=== PATIENT | male | born 1985 | race Two or more races ===

== ENCOUNTER 2018-09-19 07:50 | Emergency (ER) | payer OTHER ==
[~2018-09-19] VITALS: Ht 180.3 cm; Wt 59.0 kg
[2018-09-19] MEDS ORDERED: CloNIDine HCL 0.1 MG TABLET PO ONE (08:15)
[2018-09-19] MEDS ORDERED: ONDANSETRON HCL 4 MG TABLET PO ONE (08:15)
[2018-09-19] MEDS ORDERED: IBUPROFEN 600 MG TABLET PO ONE (08:15)
[2018-09-19] MEDS ORDERED: HydrOXYzine PAMOATE 50 MG CAPSULE PO ONE (09:45)
[2018-09-19 10:49] VITALS: BP 139/79
== END 2018-09-19 11:03 | disposition home or self-care (01) ==
LOC: EMS 07:52
DX: F11.23 Opioid dependence with withdrawal (principal); M79.10 Myalgia, unspecified site; R11.0 Nausea; F17.210 Nicotine dependence, cigarettes, uncomplicated; I10 Essential (primary) hypertension
CPT/HCPCS: 99284; 99406; Q0162